=== PATIENT | female | born 1995 | race Caucasian/White ===

== ENCOUNTER 2017-06-18 20:31 | Emergency (ER) | payer OTHER ==
[~2017-06-18] VITALS: Ht 162.6 cm; Wt 77.0 kg
[2017-06-18 20:33] VITALS: BP 126/78; TEMP 36.9; Ht 162.6 cm; Wt 77.0 kg
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
[2017-06-18 21:10] VITALS: PULSE 100; O2SAT 97
== END 2017-06-18 21:10 | disposition home or self-care (01) ==
LOC: C.EDB 20:34
DX: R51 Headache (principal); Y09 Assault by unspecified means